=== PATIENT | female | born 1940 | race Caucasian/White ===

== ENCOUNTER 2018-01-08 18:19 | Inpatient (IN) | payer MEDICARE, BC ==
[~2018-01-08] VITALS: Ht 154.9 cm; Wt 69.4 kg
[2018-01-08 19:07] VITALS: BP 161/60
[2018-01-08 20:05] VITALS: BP 134/59
[2018-01-08] MEDS ORDERED: FUROSEMIDE 20MG/2ML VIAL IVP NR (21:15)
[2018-01-08 22:04] LABS: BASOPHILS % 0.8 % (0.0-2.0); EOSINOPHILS % 1.2 % (0.0-5.0); LYMPHOCYTES % 21.7 % (20.0-50.0); MEAN CORPUSCULAR HEMOGLOBIN 23.2 pg (28.0-32.0); MEAN CORPUSCULAR VOLUME 74.6 fL (81.0-99.0); MEAN PLATELET VOLUME 9.3 fl (7.4-10.4); MONOCYTES % 7.7 % (2.0-8.0); NEUTROPHILS % 68.6 % (40.0-76.0); PLATELET 326 x1000/uL (130-400); RED BLOOD CELL COUNT 2.79 mill/uL (4.2-5.4)
[2018-01-08 22:07] LABS: HEMOGLOBIN. 6.5 g/dL (12.0-16.0)
[2018-01-08 22:08] LABS: HEMATOCRIT. 20.8 % (36.0-48.0)
[2018-01-08 22:20] LABS: T4 FREE 1.24 ng/dL (0.76-1.46)
[2018-01-08 23:07] LABS: TRIOIODOTHYRONINE TOTAL 0.83 ng/ml (0.60-1.81)
[2018-01-08 23:20] LABS: VITAMIN B12 SERUM > 2000.0 pg/mL (211-911)
[2018-01-08] MEDS ORDERED: MIRTAZAPINE 15MG TABLET PO NR (23:30)
[2018-01-09] VITALS (14 sets, daily range): BP systolic 110–174; BP diastolic 55–82
[2018-01-09] MEDS: TRAMADOL 50MG TABLET PO PRN (02:50)
[2018-01-09] MEDS ORDERED: MIRT30TA MT (05:15)
[2018-01-09] MEDS ORDERED: SYN150 MT (05:15)
[2018-01-09] MEDS: LEVOTHYROXINE SODIUM 150MCG TABLET PO SCH (06:01)
[2018-01-09] MEDS: PANTOPRAZOLE 40MG DR TABLET PO SCH (06:01)
[2018-01-09 06:18] LABS: HEMATOCRIT 24.8 % (36.0-48.0); HEMOGLOBIN 7.6 g/dL (12.0-16.0)
[2018-01-09 17:25] LABS: INR 1.1; PROTHROMBIN TIME 10.7 sec (9.1-11.1)
[2018-01-09 17:28] LABS: HEMATOCRIT 29.7 % (36.0-48.0); HEMOGLOBIN 9.4 g/dL (12.0-16.0)
[2018-01-09] MEDS: MIRTAZAPINE 15MG TABLET PO SCH (21:02)
[2018-01-10] VITALS: BP 154/70
[2018-01-10 04:00] VITALS: BP 146/74
[2018-01-10] MEDS: PANTOPRAZOLE 40MG DR TABLET PO SCH (06:34)
[2018-01-10] MEDS: LEVOTHYROXINE SODIUM 150MCG TABLET PO SCH (06:34)
[2018-01-10 06:56] LABS: HEMATOCRIT. 30.2 % (36.0-48.0); HEMOGLOBIN. 9.5 g/dL (12.0-16.0); MEAN CORPUSCULAR HEMOGLOBIN 24.1 pg (28.0-32.0); MEAN CORPUSCULAR VOLUME 76.6 fL (81.0-99.0); PLATELET 321 x1000/uL (130-400); RED BLOOD CELL COUNT 3.94 mill/uL (4.2-5.4); RED CELL DISTRIBUTION WIDTH 18.8 % (11.6-14.6)
[2018-01-10 07:43] LABS: HAPTOGLOBIN 224 mg/dL (30-200)
[2018-01-10 08:00] VITALS: BP 132/68
[2018-01-10 12:00] VITALS: BP 103/57
[2018-01-10 13:09] LABS: PLATELET ESTIMATE NORMAL
[2018-01-10 16:00] VITALS: BP 114/61
[2018-01-10] MEDS: TRAMADOL 50MG TABLET PO PRN ×2 (16:23→21:55)
[2018-01-10 20:00] VITALS: BP 127/60
[2018-01-10] MEDS: MIRTAZAPINE 15MG TABLET PO SCH (21:56)
[2018-01-11] VITALS: BP 124/62
[2018-01-11 04:00] VITALS: BP 122/83
[2018-01-11] MEDS: LEVOTHYROXINE SODIUM 150MCG TABLET PO SCH (06:54)
[2018-01-11] MEDS: PANTOPRAZOLE 40MG DR TABLET PO SCH (06:55)
[2018-01-11] MEDS: TRAMADOL 50MG TABLET PO PRN ×2 (06:59→20:24)
[2018-01-11 07:51] LABS: BASOPHILS % 0.5 % (0.0-2.0); EOSINOPHILS % 2.6 % (0.0-5.0); LYMPHOCYTES % 24.1 % (20.0-50.0); MEAN CORPUSCULAR HEMOGLOBIN 23.4 pg (28.0-32.0); MEAN CORPUSCULAR VOLUME 77.1 fL (81.0-99.0); MEAN PLATELET VOLUME 9.2 fl (7.4-10.4); MONOCYTES % 6.7 % (2.0-8.0); NEUTROPHILS % 66.1 % (40.0-76.0); PLATELET 347 x1000/uL (130-400); RED BLOOD CELL COUNT 4.28 mill/uL (4.2-5.4); RED CELL DISTRIBUTION WIDTH 18.9 % (11.6-14.6)
[2018-01-11 07:57] LABS: CHLORIDE 104 mEq/L (98-107)
[2018-01-11 08:30] VITALS: BP 131/63
[2018-01-11 09:06] LABS: IMMUNOGLOBULIN A 421 mg/dL (64-422); IMMUNOGLOBULIN G 1333 mg/dL (700-1600); IMMUNOGLOBULIN M 89 mg/dL (26-217)
[2018-01-11 12:00] VITALS: BP 132/75
[2018-01-11 16:00] VITALS: BP 132/75
[2018-01-11] MEDS ORDERED: POLYETHYLENE GLYCOL-ELECTROLYTE 4000ML PO NR (16:00)
[2018-01-11 20:00] VITALS: BP 130/63
[2018-01-11] MEDS: MIRTAZAPINE 15MG TABLET PO SCH (21:25)
[2018-01-11] MEDS ORDERED: MAGNESIUM CITRATE 300ML SOLUTION PO PRN (22:00)
[2018-01-12] VITALS: BP 156/65
[2018-01-12] MEDS: TRAMADOL 50MG TABLET PO PRN ×2 (02:48→11:37)
[2018-01-12 03:30] VITALS: BP 148/67
[2018-01-12] MEDS: LEVOTHYROXINE SODIUM 150MCG TABLET PO SCH (05:52)
[2018-01-12] MEDS: PANTOPRAZOLE 40MG DR TABLET PO SCH (05:52)
[2018-01-12 08:00] VITALS: BP 145/64
[2018-01-12 12:00] VITALS: BP 132/87
[2018-01-12 12:36] LABS: BASOPHILS % 0.7 % (0.0-2.0); HEMATOCRIT. 31.6 % (36.0-48.0); HEMOGLOBIN. 9.7 g/dL (12.0-16.0); LYMPHOCYTES % 17.3 % (20.0-50.0); MEAN CORPUSCULAR HEMOGLOBIN 23.6 pg (28.0-32.0); MEAN CORPUSCULAR VOLUME 77.1 fL (81.0-99.0); MEAN PLATELET VOLUME 9.2 fl (7.4-10.4); MONOCYTES % 6.9 % (2.0-8.0); NEUTROPHILS % 73.1 % (40.0-76.0); PLATELET 334 x1000/uL (130-400); RED CELL DISTRIBUTION WIDTH 19.4 % (11.6-14.6)
[2018-01-12] MEDS ORDERED: BACTERIOSTATIC SODIUM CHLORIDE 0.9% 30ML VIAL IJ ONE (12:53)
[2018-01-12 13:23] LABS: INR 1.1; PARTIAL THROMBOPLASTIN TIME 25.8 sec (23.4-31.0)
[2018-01-12 13:41] LABS: CHLORIDE 103 mEq/L (98-107)
[2018-01-12 14:30] LABS: CLARITY URINE CLEAR (CLEAR); COLOR URINE YELLOW (YELLOW); KETONES URINE NEGATIVE (NEGATIVE); LEUKOCYTE ESTERASE URINE TRACE (NEGATIVE); NITRITE URINE NEGATIVE (NEGATIVE); OCCULT BLOOD URINE NEGATIVE (NEGATIVE); PROTEIN URINE NEGATIVE (NEGATIVE); SPECIFIC GRAVITY URINE 1.011 (1.005-1.030)
[2018-01-12] MEDS ORDERED: MIDAZOLAM HCL 5 MG/5 ML VIAL IV PRN (15:32)
[2018-01-12] MEDS ORDERED: FENTANYL CITRATE/PF 50MCG/ML 2ML VIAL ONE (15:33)
[2018-01-12] MEDS ORDERED: MIDAZOLAM HCL 5 MG/5 ML VIAL ONE (15:33)
[2018-01-12] MEDS ORDERED: FENTANYL CITRATE/PF 50MCG/ML 2ML VIAL IV PRN (15:33)
[2018-01-12 17:30] VITALS: BP 127/62
[2018-01-12 18:09] VITALS: BP 127/62
[2018-01-12 19:05] LABS: FOLIC ACID (FOLATE) SERUM 16.5 ng/mL (>5.38)
[2018-01-12 21:02] LABS: HEPATITIS B SURFACE ANTIGEN NEGATIVE
[2018-01-14 09:06] LABS: FOLATE HEMATOCRIT 32.2 % (34.0-46.6)
[2018-01-14 15:06] LABS: FOLATE HEMOLYSATE 492.3 ng/mL (Not Estab.); FOLATE RBC 1529 ng/mL (>498)
== END 2018-01-12 20:36 | disposition home or self-care (01) | DRG 812 ==
LOC: 5WST 18:19
PROVIDERS: ADMIT Internal Medicine; ATTEND Internal Medicine
PROC: 30233N1 Transfusion of Nonautologous Red Blood Cells into Peripheral Vein, Percutaneous Approach (ICD-10-PCS; principal; 2018-01-09)
PROC: 0DB68ZX Excision of Stomach, Via Natural or Artificial Opening Endoscopic, Diagnostic (ICD-10-PCS; 2018-01-12)
DX: D50.9 Iron deficiency anemia, unspecified (principal); K57.30 Diverticulosis of large intestine without perforation or abscess without bleeding; I10 Essential (primary) hypertension; K64.9 Unspecified hemorrhoids; J44.9 Chronic obstructive pulmonary disease, unspecified; K29.60 Other gastritis without bleeding; Z96.643 Presence of artificial hip joint, bilateral; Z96.653 Presence of artificial knee joint, bilateral; K44.9 Diaphragmatic hernia without obstruction or gangrene; K59.00 Constipation, unspecified; Z86.010 Personal history of colon polyps; Z86.711 Personal history of pulmonary embolism; Z90.12 Acquired absence of left breast and nipple; Z90.49 Acquired absence of other specified parts of digestive tract
CPT/HCPCS: 36415; 71045; 71250; 74176; 80048; 80053; 81003; 82270; 82378; 82607; 82728; 82746; 82747; 82784; 82977; 83010; 83540; 83550; 83615; 84439; 84443; 84480; 84481; 85007; 85014; 85018; 85025; 85027; 85044; 85049; 85384; 85610; 85730; 86334; 86803; 86850; 86900; 86920; 87040; 87340; 88305; 88312; 88313; J1940; J2250; J3010; J3490; J7040; P9016